=== PATIENT | female | born 1955 | race Caucasian/White ===

== ENCOUNTER 2018-02-03 10:34 | Emergency (ER) | payer OTHER ==
[2018-02-03 10:41] VITALS: BP 122/77; PULSE 88; TEMP 97; BMI 37.4
[2018-02-03] MEDS ORDERED: OXYMETAZOLINE 0.05% NASAL SOLUTION 15 ML BOTTLE NS ONE (11:40)
--- NOTE | 2018-02-03 11:40 | PDOC ---
History of Present Illness - General Chief Complaint: Nasal Bleeding Stated Complaint: NASAL BLEED Time Seen by Provider: 02/03/18 11:31 History Source: Patient - History of Present Illness Timing/Duration: other (am) Associated Symptoms: denies: cough Past History - Past Medical History Allergies/Adverse Reactions: Allergies Allergy/AdvReac Type Severity Reaction Status Date / Time No Known Allergies Allergy Verified 02/03/18 10:37 Home Medications: Ambulatory Orders NK [No Known Home Medication] 02/03/18 COPD: No Diabetes: Yes HTN: Yes Hypercholesterolemia: Yes - Surgical History Abdominal Surgery: Yes (ectopic, 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 No: Throat Pain Respiratory: No: Cough Neurological: No: Headache, Dizziness *Physical Exam - Vital Signs Last Vital Signs Temp Pulse Resp BP Pulse Ox 97.0 F L 88 18 122/77 100 02/03/18 10:37 02/03/18 10:37 02/03/18 10:37 02/03/18 10:37 02/03/18 10:37 - Physical Exam General Appearance: Yes: Appropriately Dressed. No: Apparent Distress HEENT: positive: Normal Voice, Pharynx Normal, Other (minimal fresh BRB in R nares) Respiratory/Chest: negative: Respiratory Distress Integumentary: positive: Dry, Warm Neurologic: positive: Fully Oriented, Alert, Normal Mood/Affect Medical Decision Making - Medical Decision Making 02/03/18 11:38 62-year-old female, history of hypertension, diabetes, arthritis, here with epistaxis. Patient states she woke up this morning with nasal congestion and at some point noticed bleeding from right nares that has since improved, but continues to have some minimal bleeding. Has been holding nasal pressure but not continuously. No nasal trauma. No headache, dizziness. Had similar episode several years ago. On aspirin at home See exam R epistaxis 2/2 m/l URI On baby asa Stable w/ minimal epistaxis in ER, oropharynx clear -nasal pressure/re-eval 02/03/18 13:21 Pt s/p nasal compression/afrin spray and has not rebled after an hour of observation in ER. Feels well being discharged. Patient advised to sleep in humidified environment and to apply vaseline or bacitracin ointment to nares to keep mucosa moist and to not pick or blow nose. To use Afrin for no more than 3 days and to hold compression at home if bleeding recurs. Patient told that if bleeding continues despite above measures, should return to ER immediately. Pt referred to ENT for further evaluation *DC/Admit/Observation/Transfer Diagnosis at time of Disposition: Epistaxis - Discharge Dispostion Disposition: HOME Condition at time of disposition: Improved - Referrals Referrals: Earl Dalal [Primary Care Provider] - - Patient Instructions Printed Discharge Instructions: DI for Nosebleed Additional Instructions: La hemorragia nasal puede ser causada por un resfriado, congestin, trauma, un apartamento caliente o anticoagulantes, etc. La causa de dumont hemorragia es muy probablemente causada por lisa congestin nasal / fra. Las formas de prevenir el sangrado recurrente consisten en dormir en un ambiente humidificado, aplicar ungento de bacitracina o vaselina dentro de ambas fosas nasales para mantener la mucosa hmeda. Use afrin ethan los pr ximos 3 workman, ya que usarlo por ms tiempo puede empeorar la congestin. Inyecte 2 pulverizaciones en ambas fosas nasales BID x 3 workman. Roce lejos del tabique nasal (la parte que separa ambas fosas nasales) Si el sangrado recurre en el hogar, sostenga la presin nasal ethan 15 minutos sin interrupcin. Si el sangrado no se resuelve, regrese a la ED Por favor, siga con el Dr. Oliverio barnes ENT en 1-2 semanas para lisa evaluacin adicional Print Language: MALAWIAN - Post Discharge Activity Forms/Work/School Notes: Back to Work
== END 2018-02-03 13:28 | disposition home or self-care (01) ==
LOC: JERFT 10:34
DX: R04.0 Epistaxis (principal); I10 Essential (primary) hypertension; E11.9 Type 2 diabetes mellitus without complications; E78.00 Pure hypercholesterolemia, unspecified
CPT/HCPCS: 99281-25